=== PATIENT | female | born 1990 | race Caucasian/White ===

== ENCOUNTER 2020-01-24 06:20 | Emergency (ER) | payer OTHER ==
[~2020-01-24] VITALS: Ht 160 cm; Wt 163.3 kg
[2020-01-24 06:42] VITALS: BP 168/93
--- NOTE | 2020-01-24 06:48 | NUR ---
29 Y/O FEMALE C/O SINCE WEDNESDAY RIGHT EAR PAIN ; PAIN 03/21; PT HAS USED HOT COMPRESS/HYDROGEN PEROXIDE/OTC EAR DROPS/RUBBING ALCOHOL ON COTTON BALL/ TOOK 400MG OF ADVIL AT 10PM LAST NIGHT WITH MINIMAL RELIEF; PMH: HTN/PRE-DIABTES/OBESITY/SLEEP APNEA/ANXIETY/DEPRESSION NKA
--- NOTE | 2020-01-24 06:48 | NUR ---
PT AMBULATED TO BED 12 WITH STEADY GAIT
--- NOTE | 2020-01-24 07:17 | NUR ---
Pt report given to HAYES ELLIOTT. Transfer of care at this time.
--- NOTE | 2020-01-24 07:37 | NUR ---
DR NELSON AT BEDSIDE
[2020-01-24 07:47] VITALS: BP 154/82
--- NOTE | 2020-01-24 07:47 | NUR ---
Patient discharged with v/s stable. Written and verbal after care instructions given and explained. Patient alert, oriented and verbalized understanding of instructions. Ambulatory with steady gait. All questions addressed prior to discharge. ID band removed. Patient advised to follow up with PMD. Rx of MOTRIN, TRAMADOL, CIPRODEX given. Patient educated on indication of medication including possible reaction and side effects. Opportunity to ask questions provided and answered. PT INSTRUCTED TO KEEP EAR DRY
== END 2020-01-24 07:47 | disposition home or self-care (01) ==
LOC: MED 06:20
DX: H66.91 Otitis media, unspecified, right ear (principal); R03.0 Elevated blood-pressure reading, without diagnosis of hypertension; F41.9 Anxiety disorder, unspecified; F32.9 Major depressive disorder, single episode, unspecified; R73.03 Prediabetes
CPT/HCPCS: 99283